=== PATIENT | female | born 1990 | race Caucasian/White ===

== ENCOUNTER 2020-06-13 11:00 | Emergency (ER) | payer MEDICAID, SELFPAY ==
[2020-06-13 11:08] VITALS: BP 151/95; PULSE 70; RESP 16; TEMP 36.8; O2SAT 100
--- NOTE | 2020-06-13 11:18 | ED.DENTAL ---
HPI - Dental/Oral General Chief complaint: Dental/Oral Stated complaint: tooth pain Time Seen by Provider: 06/13/20 11:15 Source: patient Mode of arrival: ambulatory Limitations: no limitations History of Present Illness HPI Narrative: Joan Joshua is a 29 yo female with no PMH who has dental pain in tooth #2 that started last night. Patient knows that tooth needs to be pulled but has not established a dentist here in the area; states moved here recently from [place]. She rates pain as 10 out of 10. Patient denies any nausea vomiting diarrhea or fever, has minimal facial swelling Related Data Allergies Allergy/AdvReac Type Severity Reaction Status Date / Time No Known Allergies Allergy Verified 06/13/20 11:15 Review of Systems Review of Systems: Narrative: CONSTITUTIONAL: Denies fever, chills, sweats. EYES: Denies visual changes, redness, discharge. ENT: Denies rhinorrhea, congestion, sore throat, otalgia. Has pain in tooth #2, needs to be pulled CARDIOVASCULAR: Denies chest pain, palpitations, edema. RESPIRATORY: Denies dyspnea, wheezing, cough GASTROINTESTINAL: Denies abdominal pain, nausea, vomiting, diarrhea. GENITOURINARY: Denies dysuria, hematuria, abnormal discharge SKIN: Denies rash or itching. NEUROLOGIC: Denies numbness, or focal weakness. PSYCHIATRIC: Denies anxiety or depression. PMFSH Past Medical History Medical History No active medical problems Family History Family History Other No active medical problems Social History Social History (Updated 06/13/20 @ 11:21 by Marina Barrios CNP) Smoking status: Never smoker Alcohol intake: current Comments At time of signature, I agree with nursing past medical, surgical, social and family history. There is no relevant family history pertinent to the presenting complaint. Patient's blood pressure elevated in the visit probably due to pain; needs to establish PCP Exam Narrative: Exam Narrative: GENERAL: This is a well-nourished, well-developed patient, in moderate distress. HEAD: normocephalic, atraumatic. EYES: Sclera clear/white. Vision is grossly intact. EARS: External ears normal Hearing grossly intact. NOSE: External nose normal without nasal discharge, nares without redness, no rhinorrhea. THROAT: Mucous membranes moist, tooth pain #2 with swelling of the gum and pain when closing mouth; mild right-sided facial swelling NECK: Neck supple, non-tender CARDIOVASCULAR: Regular rate and rhythm without murmurs, gallops, or rubs. RESPIRATORY: Clear to auscultation. Breath sounds equal bilaterally. No wheezes, rales, or rhonchi. GASTROINTESTINAL: Abdomen soft, SKIN: warm, intact with no suspicious lesions or rash, good texture and turgor. NEURO: awake, alert, and oriented to person, place and time. There were no obvious focal neurologic abnormalities. Steady gait EXTREMITIES: Normal range of motion. BACK: Nontender without deformity Course Course Emergency Course: Started on penicillin, discussed use ibuprofen and given Tylenol 3 Referral to see you dental follow-up with dentist in the area Vital Signs Vital signs: Vital Signs Temperature 98.3 F 06/13/20 11:08 Pulse Rate 70 06/13/20 11:08 Respiratory Rate 16 06/13/20 11:08 Blood Pressure 151/95 H 06/13/20 11:08 Pulse Oximetry 100 06/13/20 11:08 Temperature 98.3 F 06/13/20 11:08 Pulse Rate 70 06/13/20 11:08 Respiratory Rate 16 06/13/20 11:08 Blood Pressure 151/95 H 06/13/20 11:08 Pulse Oximetry 100 06/13/20 11:08 MDM - Dental/Oral Differential Diagnosis Differential diagnosis: Likely gingival abscess, dental caries, toothache, dental abscess and fracture of tooth Discharge Plan Discharge Clinical Impression: Dental abscess Patient Disposition: Home, Self-Care Condition: Stable Instructions: Antibiotic Form, Dental Abscess
== END 2020-06-13 11:36 | disposition home or self-care (01) ==
PROVIDERS: Emergency Provider Nurse Practitioner
DX: K04.7 Periapical abscess without sinus (principal)
CPT/HCPCS: 99213; G0463

== ENCOUNTER 2020-08-30 08:08 | Emergency (ER) | payer OTHER, SELFPAY ==
[2020-08-30 08:21] VITALS: BP 135/75; PULSE 99; RESP 16; TEMP 37.2; O2SAT 100
--- NOTE | 2020-08-30 08:25 | ED.DENTAL ---
HPI - Dental/Oral General Chief complaint: Dental/Oral Stated complaint: sore throat/infected tooth Time Seen by Provider: 08/30/20 08:26 Source: patient and RN notes reviewed Mode of arrival: ambulatory Limitations: no limitations History of Present Illness HPI Narrative: 29 year old female presents with concern for dental abscess and exposure to COVID. She reports a history of dental problems. She reports she has been having dental pain and sore throat since Sunday, but woke up this morning with swelling in her left lower jaw. She is able to swallow secretions. She denies fever, body aches, cough, chills, sweats. She reports her room mate was recently diagnosed with COVID. MD Complaint: tooth pain Location: Tooth # (17) Related Data Allergies Allergy/AdvReac Type Severity Reaction Status Date / Time No Known Allergies Allergy Verified 08/30/20 08:19 Review of Systems Review of Systems: Narrative: CONSTITUTIONAL: Denies malaise, chills, sweats, or fever. EYES: Denies visual changes ENT: Denies rhinorrhea, congestion, sinus pain, otalgia, Reports sore throat. Reports left lower dental pain, left lower jaw swelling CARDIOVASCULAR: Denies chest pain, palpitations, or edema. RESPIRATORY: Denies cough or dyspnea. GASTROINTESTINAL: Denies abdominal pain, nausea, vomiting SKIN: Denies rash or itching. MUSCULOSKELETAL: Denies myalgia. NEUROLOGIC: Denies headache. All systems reviewed & are unremarkable except as noted in HPI and below PMFSH Past Medical History Medical History (Updated 08/30/20 @ 08:57 by Jessenia Charles NP) No active medical problems Family History Family History Other No active medical problems Social History Social History (Updated 06/13/20 @ 11:21 by Marina Barrios CNP) Smoking status: Never smoker Alcohol intake: current Comments At time of signature, agree with nursing past medical, surgical, social and family history. There is no relevant family history pertinent to the presenting complaint Exam Narrative: Exam Narrative: GENERAL: Well-appearing, well-nourished, and in no acute distress. HEAD: Normocephalic, atraumatic. EYES: PERRLA, conjunctivae clear ENT: Nares clear. Mucous membranes moist. TM pearly carter with sharp light reflex bilaterally; no tragal tenderness. Oropharynx without edema, mild erythema, no lesions. No drooling, Left Tonsil enlarged and without exudate. NECK: Supple. No lymphadenopathy. CHEST: No respiratory distress. Clear to auscultation. No bony deformities, no asymmetry. Speaks in full sentences. HEART: Regular rate and rhythm. No murmur heard. SKIN: Warm, dry, no rash. NEURO: Alert and oriented x3. PSYCH: Normal mood and affect Course Course Emergency Course: Patient is aware of diagnosis, understands and agrees to treatment plan. Anticipatory guidance given. Patient agrees to follow-up as directed and is aware of reasons to seek care at the emergency department. Portions of this record may have been created with voice recognition software Vital Signs Vital signs: Vital Signs Temperature 99.0 F 08/30/20 08:21 Pulse Rate 99 08/30/20 08:21 Respiratory Rate 16 08/30/20 08:21 Blood Pressure 135/75 08/30/20 08:21 Pulse Oximetry 100 08/30/20 08:21 Temperature 99.0 F 08/30/20 08:21 Pulse Rate 99 08/30/20 08:21 Respiratory Rate 16 08/30/20 08:21 Blood Pressure 135/75 08/30/20 08:21 Pulse Oximetry 100 08/30/20 08:21 Reviewed. MDM - Dental/Oral MDM Narrative Medical decision making narrative: Patients pain and complaint coupled with physical findings are consistant with dentalgia. There are no focal signs of space occupying lesions that are compromising to the airway; no dysphagia, odynophagia, dysphonia, or dyspnea. No uvular deviation or soft palate edema. Patient is non-toxic appearing. The floor of the mouth is soft with no signs of Rad's Angina; no induration
== END 2020-08-30 08:53 | disposition home or self-care (01) ==
PROVIDERS: Emergency Provider Nurse Practitioner
DX: K04.7 Periapical abscess without sinus (principal); Z20.828 Contact with and (suspected) exposure to other viral communicable diseases
CPT/HCPCS: 87081; 87880; 99213; G0463

== ENCOUNTER 2020-12-11 07:50 | Emergency (ER) | payer OTHER, SELFPAY ==
[2020-12-11 07:59] VITALS: BP 140/90; PULSE 99; RESP 20; TEMP 36.2; O2SAT 99
--- NOTE | 2020-12-11 08:03 | ED.NAVMDI ---
HPI - Nausea/Vomiting/Diarrhea General Chief complaint: Nausea/Vomiting/Diarrhea Stated complaint: vomiting blood Time Seen by Provider: 12/11/20 07:53 History of Present Illness HPI Narrative: Nausea since waking up this morning. She was drinking heavily last night. She had one episode of forceful vomiting. She then subsequently vomited blood multiple times. She has never had this happen before. No significant pain. No active medical problems. Related Data Allergies Allergy/AdvReac Type Severity Reaction Status Date / Time No Known Allergies Allergy Verified 12/11/20 08:03 Review of Systems Review of Systems: All systems reviewed & are unremarkable except as noted in HPI and below Constitutional: Constitutional: Denies fever(s) and Denies weakness Eyes: Eyes: Denies no additional eye complaints ENT: Denies dizziness Cardiovascular: Cardiovascular: Denies chest pain Respiratory: Respiratory: Denies dyspnea Gastrointestinal: Gastrointestinal: Denies constipation, Denies diarrhea, Reports nausea and Reports vomiting Genitourinary: Genitourinary: Denies hematuria and Denies dysuria Neurologic: Denies dizziness and Denies weakness Hematologic/Lymphatic: Hematologic/Lymphatic: Denies easy bleeding PMFSH Past Medical History Medical History (Updated 12/12/20 @ 00:00 by [facility] Tasha) No active medical problems Family History Family History Other No active medical problems Social History Social History (Updated 06/13/20 @ 11:21 by Marina Barrios CNP) Smoking status: Never smoker Alcohol intake: current Gender identity (if verbalized by the patient): Female Exam Const: General: healthy appearing, no acute distress and alert Orientation/consciousness: patient oriented x3 HENMT: Head: normal to inspection General nose exam: Normal nares present Mouth: Yes moist mucous membranes Neck: Neck: normal visual inspection and no lymphadenopathy Chest: Chest palpation & inspection: no tenderness Resp: Effort & Inspection: normal respiratory effort Auscultation: clear to auscultation bilaterally, no rales, no rhonchi and no wheezes Cardio: Jugular venous distension: no JVD Rate: regular rate Rhythm: regular rhythm Heart sounds: no murmurs GI: Inspection: non-distended GI Palp: Yes Soft to palpation and No Tenderness to palpation present (GI) Skin: General skin exam: normal color Neuro: General: patient oriented x3 and moves all extremities Speech: normal speech Extrem: General: no edema Psych: Appearance: well kempt Affect: normal affect Course Vital Signs Vital signs: Vital Signs Temperature 36.2 C L 12/11/20 07:59 Pulse Rate 99 12/11/20 07:59 Respiratory Rate 20 12/11/20 07:59 Blood Pressure 140/90 12/11/20 07:59 Pulse Oximetry 99 12/11/20 07:59 Temperature 36.2 C L 12/11/20 07:59 Pulse Rate 80 12/11/20 11:45 Respiratory Rate 20 12/11/20 11:45 Blood Pressure 127/74 12/11/20 11:45 Pulse Oximetry 99 12/11/20 11:45 MDM - Nausea/Vomiting/Diarrhea MDM Narrative Medical decision making narrative: Story consistent with gabriel padilla tear. Discussed with Dr. Ferris and he agrees. He recommends protonix for 30 days and Phenergan prn. Labs stable at 3 hours. No more vomiting Differential Diagnosis Differential diagnosis: Likely other Medical Records Attestation: I reviewed the patient's medical records. Lab Data Attestation: I reviewed the patient's lab results. Result diagrams: 12/11/20 10:50 12/11/20 08:20 Labs: Lab Results 12/11/20 12/11/20 12/11/20 Range/Units 08:10 08:20 08:21 WBC 8.2 (4.5-10.0) K/mm3 RBC 4.43 (4.2-5.4) M/mm3 Hgb 13.9 (12.0-15.0) g/dL Hct 40.4 (37.0-47.0) % MCV 91.2 (80-100) fl MCH 31.4 (26-34) pg MCHC 34.4 (32-36) g/dl RDW 12.9 (11.5-14.5) % Plt Count 286 (150-375) k/mm3 MPV
[2020-12-11 08:17] LABS: Basophils Percent Auto 0.4 % (0.2-1.2); Eosinophils Absolute Auto 0.3 K/mm3 (0-0.3); Eosinophils Percent Auto 3.3 % (0-4.4); Hematocrit 40.4 % (37.0-47.0); Hemoglobin 13.9 g/dL (12.0-15.0); Immature Granulocyte Absolute 0.05 K/mm3 (0.00-0.031); Immature Granulocyte Percent A 0.6 % (0-0.5); Lymphocytes Absolute Auto 2.94 K/mm3 (0.9-3.2); Lymphocytes Percent Auto 36.1 % (18.3-44.2); Mean Corpuscular HGB Conc 34.4 g/dl (32-36); Mean Corpuscular Hemoglobin 31.4 pg (26-34); Mean Corpuscular Volume 91.2 fl (80-100); Mean Platelet Volume 10.5 fl (7.4-10.4); Monocytes Absolute Auto 0.8 K/mm3 (0.1-0.6); Monocytes Percent Auto 9.3 % (2.6-8.5); Neutrophils Absolute Auto 4.1 K/mm3 (1.3-6.7); Neutrophils Percent Auto 50.3 % (45.5-73.1); Platelet Count Result 286 k/mm3 (150-375); Red Blood Count 4.43 M/mm3 (4.2-5.4); Red Cell Distribution Width 12.9 % (11.5-14.5); White Blood Count 8.2 K/mm3 (4.5-10.0)
[2020-12-11] MEDS: PANTOPRAZOLE SODIUM IV 40 MG VIAL IV PUSH (08:17)
[2020-12-11 08:20] VITALS: BP 137/92; PULSE 92; RESP 20; O2SAT 100
[2020-12-11 08:37] LABS: INR 0.9; Prothrombin Time 12.3 Seconds (11.1-14.7)
[2020-12-11 08:38] LABS: Partial Thromboplastin Time 26.7 SECONDS (22.3-36.8)
[2020-12-11 08:40] LABS: Alanine Aminotransferase 14 U/L (4-35); Albumin Level 4.2 g/dL (3.5-5.1); Alkaline Phosphatase 60 U/L (38-126); Anion Gap 9 mmol/L (8-16); Aspartate Amino Transferase 32 U/L (14-36); Bilirubin,Total 0.1 mg/dL (0.2-1.3); Blood Urea Nitrogen 15 mg/dL (7-17); Calcium 8.7 mg/dL (8.4-10.2); Carbon Dioxide 24 mmol/L (22-30); Chloride 107 mmol/L (98-107); Estimated CRCL calculation 125 ml/min; Estimated Glomerular Filt Rate > 60; Glucose 108 mg/dL (65-105); Lipase 88 U/L (23-300); Potassium 3.8 mmol/L (3.4-5.0); Sodium 140 mmol/L (137-145)
[2020-12-11 08:57] LABS: Add Urine Microscopic? YES; Amorphous Sediment Urine Few; Appearance Urine Cloudy (Clear); Bilirubin Urine Negative (Negative); Blood Urine 2+ (Negative); Color Urine Yellow (Yellow); Glucose Urine UA Negative (Negative); Ketones Urine Negative (Negative); Leukocyte Esterase Ur Negative LEU/UL (Negative); Nitrate Urine Negative (Negative); Protein Urine 1+ mg/dL (Negative); RBC Urine 51-75 /hpf (0-2); Specific Grav Ur 1.015 (1.001-1.035); Squamous Epithelial Cell Urine Occasional /hpf (Few); Urobilinogen Urine Negative mg/dL (<2.0); WBC Urine 0-3 /hpf
[2020-12-11] MEDS: ONDANSETRON INJ 4 MG/2 ML VIAL IV PUSH (09:12)
[2020-12-11 09:25] VITALS: BP 140/95; PULSE 72; RESP 20; O2SAT 100
[2020-12-11 10:14] VITALS: BP 127/74; PULSE 70; RESP 20; O2SAT 100
--- NOTE | 2020-12-11 10:52 | WPDGIPROGNO ---
Progress Note: A&P Additional Plan Protonix 40 mg po daily x 30 days then stop Clears only today Antiemetics prn Rechack H+H and if stable ok to d/c Care with EtoH Avoid asa/nsaids x 2 weeks F/U gi prn Case discussed with Dr. De La Fuente #[id number] Josy [phone] Subjective Date/time seen: 12/11/20 10:52 Objective Data Vital Signs Vital Signs: Vital Signs - 24 hr 12/11/20 07:59 12/11/20 08:20 12/11/20 09:25 Temperature 36.2 C L Pulse Rate 99 92 72 Respiratory Rate 20 20 20 Blood Pressure 140/90 137/92 H 140/95 H Pulse Oximetry 99 100 100 12/11/20 10:14 Temperature Pulse Rate 70 Respiratory Rate 20 Blood Pressure 127/74 Pulse Oximetry 100 Labs Labs: Laboratory Results - last 24 hr 12/11/20 12/11/20 12/11/20 08:10 08:20 08:21 WBC 8.2 RBC 4.43 Hgb 13.9 Hct 40.4 MCV 91.2 MCH 31.4 MCHC 34.4 RDW 12.9 Plt Count 286 MPV 10.5 H Immature Gran % (Auto) 0.6 H Neut % (Auto) 50.3 Lymph % (Auto) 36.1 [place] % (Auto) 9.3 H Eos % (Auto) 3.3 Baso % (Auto) 0.4 Lymph # (Auto) 2.94 [place] # (Auto) 0.8 H Eos # (Auto) 0.3 Baso # (Auto) 0.0 Abs Immat Gran (auto) 0.05 H Absolute Neuts (auto) 4.1 Absolute Nucleated RBC 0.0 Nucleated RBC % 0.0 PT INR APTT Sodium 140 Potassium 3.8 Chloride 107 Carbon Dioxide 24 Anion Gap 9 BUN 15 Creatinine 0.60 L Estim Creat Clear Calc 125 Estimated GFR > 60 Glucose 108 H Calcium 8.7 Total Bilirubin 0.1 L AST 32 ALT 14 Alkaline Phosphatase 60 Total Protein 7.0 Albumin 4.2 Lipase 88 Urine Color Urine Appearance Urine pH Ur Specific Vandiver Urine Protein Urine Glucose (UA) Urine Ketones Ur Blood (Man) Urine Nitrate Urine Bilirubin Urine Urobilinogen Leukocyte Esterase Rfl Urine RBC Urine WBC Ur Squamous Epith Cells Amorphous Sediment Blood Type AB Positive Antibody Screen Negative 12/11/20 12/11/20 08:21 08:45 WBC RBC Hgb Hct MCV MCH MCHC RDW Plt Count MPV Immature Gran % (Auto) Neut % (Auto) Lymph % (Auto) [place] % (Auto) Eos % (Auto) Baso % (Auto) Lymph # (Auto) [place] # (Auto) Eos # (Auto) Baso # (Auto) Abs Immat Gran (auto) Absolute Neuts (auto) Absolute Nucleated RBC Nucleated RBC % PT 12.3 INR 0.9 APTT 26.7 Sodium Potassium Chloride Carbon Dioxide Anion Gap BUN Creatinine Estim Creat Clear Calc Estimated GFR Glucose Calcium Total Bilirubin AST ALT Alkaline Phosphatase Total Protein Albumin Lipase Urine Color Yellow Urine Appearance Cloudy H Urine pH 8.0 Ur Specific [place]iver 1.015 Urine Protein 1+ H Urine Glucose (UA) Negative Urine Ketones Negative Ur Blood (Man) 2+ H Urine Nitrate Negative Urine Bilirubin Negative Urine Urobilinogen Negative Leukocyte Esterase Rfl Negative Urine RBC 51-75 H Urine WBC 0-3 Ur Squamous Epith Cells Occasional Amorphous Sediment Few H Blood Type Antibody Screen
[2020-12-11 10:55] LABS: Hemoglobin 14.6 g/dL (12.0-15.0)
[2020-12-11 11:18] VITALS: BP 127/74; PULSE 80; RESP 20; O2SAT 100
--- NOTE | 2020-12-11 11:40 | CONS_ITS ---
DATE OF CONSULTATION: 12/11/2020 HISTORY OF PRESENT ILLNESS: A 30-year-old female without medical history who I am now asked to provide GI evaluation at the request of the ER service for hematemesis. The patient has no primary care provider. The patient states that she was out at a bar drinking last night, mostly fireball. This morning she had nausea and vomiting and after a few episodes began having hematemesis. This seems to have subsided. She did take ibuprofen this morning, but no aspirin. Now, she has minimal nausea and is without vomiting. She otherwise denies problems with abdominal pain, nausea, vomiting, heartburn, trouble swallowing, loss of appetite or weight, diarrhea, constipation, hematochezia, melena, fever, jaundice, scleral icterus, dark urine, light stools, itching, hot or cold intolerance. No chest pain, shortness of breath at rest, hematuria, dysuria, new cough or visual changes, easy bruising, tingling of the skin, bone pain, or tremors. No endocarditis risk factors. ALLERGIES: NO KNOWN DRUG ALLERGIES. OUTPATIENT MEDICINES: None except as above. SOCIAL HISTORY: Positive drinker. Nonsmoker. FAMILY HISTORY: Negative for GI malignancy. PHYSICAL EXAM: GENERAL: Well-developed, well-nourished female, lying in bed, no apparent distress. She has no lower extremity edema, jaundice, spider angioma, or palmar erythema. HEENT : Skull is normocephalic, atraumatic. Pupils nonicteric. Oropharynx is clear. NECK: Supple without thyromegaly. LUNGS: Clear to auscultation. HEART: Rate and rhythm regular. S1, S2 normal. ABDOMEN: Normoactive bowel sounds. Soft, nontender, nonrigid, nondistended without hepatosplenomegaly or masses. RECTAL: Deferred. NEURO: Conscious and oriented x3. LABORATORY DATA: Hemoglobin 14, hematocrit 40, white count of 8, MCV 91. INR 0.9. LFTs are normal. ASSESSMENT AND PLAN: Hematemesis after nausea and vomiting: - Likely Elissa-Herring tear. Less likely ulceration, arteriovenous malformation malignancy or other process - Nausea and vomiting appear to be subsiding; hematemesis has resolved - Okay for clear liquids today and recheck CBC later - If hematocrit is stable, would be okay sending home - If she continues to bleed or has significant drop in hematocrit, consider upper endoscopy - Would use Protonix 40 mg daily for 1 month, then stop - She can follow up with her primary care provider or GI as needed - Antiemetic prn - Avoid aspirin and NSAIDS - Case discussed with ER attending Thank you for allowing me to share in the care of this very nice patient. Please call if I can be of further assistance. MOY QUACH M.D. GLUE BONE CRUSHER GLUE BONE CRUSHER D I MT: Alice GONZALEZ
[2020-12-11 11:45] VITALS: BP 127/74; PULSE 80; RESP 20; O2SAT 99
== END 2020-12-11 11:47 | disposition home or self-care (01) ==
PROVIDERS: Emergency Provider Emergency Medicine
DX: K22.6 Gastro-esophageal laceration-hemorrhage syndrome (principal)
CPT/HCPCS: 36415; 80053; 81001; 81025; 83690; 85014; 85018; 85025; 85610; 85730; 86850; 86900; 86901; 96374; 96375; 99284; C9113; J2405

== ENCOUNTER 2021-01-27 13:55 | Emergency (ER) | payer OTHER, SELFPAY ==
[2021-01-27 14:36] VITALS: BP 155/76; PULSE 92; RESP 16; TEMP 36.7; O2SAT 98
--- NOTE | 2021-01-27 14:55 | ED.URI ---
HPI - URI/Sore Throat General Chief Complaint: Upper Respiratory Infection Stated Complaint: cough/sore throat /runny nose/headache Time Seen by Provider: 01/27/21 14:45 Source: patient Mode of arrival: ambulatory Limitations: no limitations History of Present Illness HPI Narrative: Joan Joshua is a 30-year-old female with no PMH comes to [facility] with 4 days of upper story symptoms. She has taken Mucinex and cough medicine and decongestants and continues to have difficulty with cough especially when trying to lay down and general congestion. States she does not feel well Related Data Home Medications Medication Instructions Recorded Confirmed norelgestromin-ethin.estradiol 1 patch TOPICAL WEEKLY 01/27/21 01/27/21 [Xulane] Allergies Allergy/AdvReac Type Severity Reaction Status Date / Time No Known Allergies Allergy Verified 01/27/21 14:23 Review of Systems Review of Systems: Narrative: CONSTITUTIONAL: Denies fever, chills, sweats. EYES: Denies visual changes, redness, discharge. ENT: Denies rhinorrhea, congestion, sore throat, otalgia. CARDIOVASCULAR: Denies chest pain, palpitations, edema. RESPIRATORY: Denies dyspnea, wheezing, cough. has apparent congestion GASTROINTESTINAL: Denies abdominal pain, nausea, vomiting, diarrhea. GENITOURINARY: Denies dysuria, hematuria, abnormal discharge SKIN: Denies rash or itching. NEUROLOGIC: Denies numbness, or focal weakness. PSYCHIATRIC: Denies anxiety or depression. PMFSH Past Medical History Medical History (Updated 01/27/21 @ 15:04 by Marina Barrios CNP) No active medical problems Family History Family History Other No active medical problems Social History Social History Smoking status: Never smoker Alcohol intake: current Gender identity (if verbalized by the patient): Female Exam Narrative: Exam Narrative: GENERAL: This is a well-nourished, well-developed patient, in mild distress. HEAD: normocephalic, atraumatic. EYES: Sclera clear/white. Vision is grossly intact. EARS: External ears normal, auditory canals clear and without drainage, TMs normal without perforation. Hearing grossly intact. NOSE: External nose normal without nasal discharge, nares without redness, has rhinorrhea.General sinus congestion THROAT: Mucous membranes moist, posterior pharynx erythema NECK: Neck supple, non-tender CARDIOVASCULAR: Regular rate and rhythm without murmurs, gallops, or rubs. RESPIRATORY: Clear to auscultation. Breath sounds equal bilaterally. No wheezes, rales, or rhonchi. GASTROINTESTINAL: Abdomen soft, non-tender, SKIN: warm, intact with no suspicious lesions or rash, good texture and turgor. NEURO: awake, alert, and oriented to person, place and time. There were no obvious focal neurologic abnormalities. Steady gait EXTREMITIES: Normal range of motion. BACK: Nontender without deformity Course Course Emergency Course: Patient Covid test at that visit was negative and fever on Sunday or Sunday and is continued to have cold-like symptoms Her flu, strep, Covid test were Started on albuterol steroids and Mucinex Vital Signs Vital signs: Vital Signs Temperature 98.1 F 01/27/21 14:36 Pulse Rate 92 01/27/21 14:36 Respiratory Rate 16 01/27/21 14:36 Blood Pressure 155/76 H 01/27/21 14:36 Pulse Oximetry 98 01/27/21 14:36 Temperature 98.1 F 01/27/21 14:36 Pulse Rate 92 01/27/21 14:36 Respiratory Rate 16 01/27/21 14:36 Blood Pressure 155/76 H 01/27/21 14:36 Pulse Oximetry 98 01/27/21 14:36 MDM - URI/Sore Throat Differential Diagnosis Differential diagnosis: Likely upper respiratory infection, viral infection and other Lab Data Labs: Lab Results 01/27/21 Range/Units 14:37 POC SARS CoV-2 Ag Negative (Negative) Influenza A Screen Negative
== END 2021-01-27 15:18 | disposition home or self-care (01) ==
PROVIDERS: Emergency Provider Nurse Practitioner
DX: J06.9 Acute upper respiratory infection, unspecified (principal); J01.10 Acute frontal sinusitis, unspecified; Z20.822 Contact with and (suspected) exposure to COVID-19
CPT/HCPCS: 87081; 87426; 87804; 87880; 99213; C9803; G0463

== ENCOUNTER 2021-04-26 17:40 | Emergency (ER) | payer OTHER, SELFPAY ==
[2021-04-26 17:48] VITALS: BP 160/110; PULSE 72; RESP 16; TEMP 36.5; O2SAT 99
--- NOTE | 2021-04-26 17:50 | PC.NURSE ---
in br to obtain ua spec.
--- NOTE | 2021-04-26 18:05 | ED.FEMALEGU ---
HPI - Female Genitourinary General Chief complaint: Urogenital-Female Stated complaint: UTI Time Seen by Provider: 04/26/21 17:54 Source: patient and RN notes reviewed Mode of arrival: ambulatory Limitations: no limitations History of Present Illness HPI Narrative: Patient presents today complaining of urinary frequency, lower abdominal pressure since this morning. Denies dysuria, hematuria, back pain. She has been taking Azo cranberry without relief. Recently on penicillin for dental issue. Related Data Home Medications Medication Instructions Recorded Confirmed norelgestromin-ethin.estradiol 1 patch TOPICAL WEEKLY 01/27/21 01/27/21 [Xulane] Allergies Allergy/AdvReac Type Severity Reaction Status Date / Time No Known Allergies Allergy Verified 01/27/21 14:23 Review of Systems Review of Systems: Narrative: CONSTITUTIONAL: Denies body aches, fever, chills, or sweats. EYES: Denies visual changes, redness, or discharge. ENT: Denies rhinorrhea, congestion, sore throat, or otalgia. CARDIOVASCULAR: Denies chest pain, palpitations, or edema. RESPIRATORY: Denies cough or dyspnea. GASTROINTESTINAL: Denies abdominal pain, nausea, vomiting, or diarrhea. GENITOURINARY: Denies dysuria or hematuria.+ Frequency, lower abdominal pressure SKIN: Denies rash, itching, or wounds. MUSCULOSKELETAL: Denies back pain, joint pain, or myalgia. NEUROLOGIC: Denies headache, numbness, tingling, or weakness. PSYCH: Denies depression or anxiety. PMFSH Past Medical History Medical History (Updated 04/26/21 @ 18:08 by Asha Baires, [employer], ) No active medical problems Family History Family History Other No active medical problems Social History Social History Smoking status: Never smoker Alcohol intake: current Gender identity (if verbalized by the patient): Female Comments At time of signature, I have reviewed and agree with nursing past medical, surgical, social and family history unless otherwise noted. Please see nursing chart for further information. There is no relevant family history pertinent to the presenting complaint Exam Narrative: Exam Narrative: GENERAL: Well-appearing, well-nourished, and in no acute distress. HEAD: Normocephalic, atraumatic. EYES: EOMI. No redness or drainage. Conjunctivae normal. ENT: Mucous membranes pink and moist. Nares clear. No rhinorrhea. TMs normal bilaterally. Throat normal. Uvula midline. NECK: Normal AROM. Supple. No lymphadenopathy. CHEST: No respiratory distress. Clear to auscultation. HEART: Regular rate and rhythm. No murmur appreciated. Normal peripheral pulses. ABDOMEN: Soft, nondistended, normal active bowel sounds. + Mild suprapubic tenderness MUSCULOSKELETAL: No bony tenderness. EXTREMITIES: Normal range of motion. No edema. SKIN: Warm, dry, no rash. Capillary refill normal. Normal skin turgor. NEURO: No focal deficits. Alert and oriented x3. Gait steady. PSYCH: Normal affect. No signs of depression or anxiety. Course Vital Signs Vital signs: Vital Signs Temperature 97.7 F 04/26/21 17:48 Pulse Rate 72 04/26/21 17:48 Respiratory Rate 16 04/26/21 17:48 Blood Pressure 160/110 H 04/26/21 17:48 Pulse Oximetry 99 04/26/21 17:48 Temperature 97.7 F 04/26/21 17:48 Pulse Rate 72 04/26/21 17:48 Respiratory Rate 16 04/26/21 17:48 Blood Pressure 160/110 H 04/26/21 17:48 Pulse Oximetry 99 04/26/21 17:48 Reviewed. Pt has been instructed to follow up with her PCP regarding her elevated blood pressure today. Patient just moved into town from [place] and will be given a list of doctors in the area to initiate care. MDM - Female Genitourinary Differential Diagnosis Differential diagnosis: Likely urinary tract infection, vaginitis, cystitis and other (Interstitial cystitis, pyelonephritis) Lab Data Attestati
== END 2021-04-26 18:16 | disposition home or self-care (01) ==
PROVIDERS: Emergency Provider Nurse Practitioner
DX: N30.01 Acute cystitis with hematuria (principal)
CPT/HCPCS: 81003; 87077; 87086; 87088; 87186; 99213; G0463

== ENCOUNTER 2021-04-27 13:05 | Emergency (ER) | payer OTHER, SELFPAY ==
[2021-04-27] VITALS (17 sets, daily range): BP systolic 138–148; BP diastolic 86–104; PULSE 78–96; RESP 10–23; TEMP 36.6–36.8; O2SAT 99–100
--- NOTE | ~2021-04-27 | XR_ITS ---
EXAMINATION: XR chest 2V EXAM DATE: 04/27/2021 13:48 INDICATION: Hypertension, chest tightness and dizziness. Recent UTI. TECHNIQUE: Frontal and lateral projections of the chest obtained and reviewed. There is no prior phill dy for comparison. FINDINGS: The lungs are clear. There are no pleural effusions. The cardiomediastinal silhouette is within normal limits. There is no pneumothorax suspected. The bones and soft tissues are unremarkab le. IMPRESSION: Normal chest x-ray exam. Reviewed, dictated and finalized at location A. IMPRESSION: Normal chest x-ray exam.
--- NOTE | 2021-04-27 13:15 | ECG_ITS ---
Measurements Intervals [place] Rate: 88 P: 13 NM: 146 QRS: 45 QRSD: 88 T: 36 QT: 341 QTc: 414 Interpretive Statements SINUS RHYTHM NORMAL ECG Electronically Signed On 04-27-2021 14:41:55 CDT by Fabian Ford D.O.
[2021-04-27 14:00] LABS: Basophils Percent Auto 0.3 % (0.2-1.2); Eosinophils Absolute Auto 0.1 K/mm3 (0-0.3); Eosinophils Percent Auto 1.2 % (0-4.4); Hematocrit 40.8 % (37.0-47.0); Hemoglobin 13.9 g/dL (12.0-15.0); Immature Granulocyte Absolute 0.03 K/mm3 (0.00-0.031); Immature Granulocyte Percent A 0.3 % (0-0.5); Lymphocytes Absolute Auto 1.85 K/mm3 (0.9-3.2); Lymphocytes Percent Auto 20.7 % (18.3-44.2); Mean Corpuscular HGB Conc 34.1 g/dl (32-36); Mean Corpuscular Hemoglobin 30.8 pg (26-34); Mean Corpuscular Volume 90.3 fl (80-100); Mean Platelet Volume 11.1 fl (7.4-10.4); Monocytes Absolute Auto 0.7 K/mm3 (0.1-0.6); Monocytes Percent Auto 8.3 % (2.6-8.5); Neutrophils Absolute Auto 6.2 K/mm3 (1.3-6.7); Neutrophils Percent Auto 69.2 % (45.5-73.1); Platelet Count Result 238 k/mm3 (150-375); Red Blood Count 4.52 M/mm3 (4.2-5.4); Red Cell Distribution Width 12.2 % (11.5-14.5); White Blood Count 8.9 K/mm3 (4.5-10.0)
[2021-04-27 14:14] LABS: Anion Gap 8 mmol/L (8-16); Blood Urea Nitrogen 7 mg/dL (7-17); Calcium 9.3 mg/dL (8.4-10.2); Carbon Dioxide 27 mmol/L (22-30); Chloride 104 mmol/L (98-107); Estimated CRCL calculation 95 ml/min; Estimated Glomerular Filt Rate > 60; Glucose 79 mg/dL (65-105); Potassium 4.4 mmol/L (3.4-5.0); Sodium 139 mmol/L (137-145)
[2021-04-27 14:17] LABS: INR 0.9
[2021-04-27 14:20] LABS: Partial Thromboplastin Time 28.4 SECONDS (22.3-36.8)
[2021-04-27 14:26] LABS: Troponin I < 0.012 ng/mL (0.000-0.034)
[2021-04-27] MEDS: SODIUM CHLORIDE 0.9% IV 1,000 ML 999 ML IV CONT (16:15)
[2021-04-27] MEDS: FAMOTIDINE 20 MG/2 ML VIAL IV PUSH (16:15)
--- NOTE | 2021-04-27 16:25 | ED.GENADULT ---
HPI - General Adult General Chief complaint: Chest Pain Stated complaint: ELEVATED BP Time Seen by Provider: 04/27/21 15:10 Source: patient and RN notes reviewed Mode of arrival: ambulatory Limitations: no limitations History of Present Illness HPI narrative: Patient is a 30-year-old female who presents to emergency department for evaluation of feeling dizzy lightheaded that began today is also had urinary frequency and urgency was seen yesterday when her symptoms began was diagnosed with a urinary tract infection but never picked up the medication she was prescribed this morning nor has she started her medication and she states she continues to feel lightheaded dizzy and fatigue patient denies any URI symptoms or other complaints on arrival is in the room in no distress has not taken anything for her symptoms denies URI symptoms has not been vaccinated for Covid Related Data Home Medications Medication Instructions Recorded Confirmed norelgestromin-ethin.estradiol 1 patch TOPICAL WEEKLY 01/27/21 01/27/21 [Xulane] Allergies Allergy/AdvReac Type Severity Reaction Status Date / Time No Known Allergies Allergy Verified 04/27/21 15:15 Review of Systems Review of Systems: All systems reviewed & are unremarkable except as noted in HPI and below PMFSH Past Medical History Medical History (Updated 04/27/21 @ 16:49 by Jayant Frias PA-C) No active medical problems Family History Family History Other No active medical problems Social History Social History Smoking status: Never smoker Alcohol intake: current Gender identity (if verbalized by the patient): Female Exam Narrative: Exam Narrative: GENERAL: Well-appearing, well-nourished, and in no acute distress. HEAD: Normocephalic, atraumatic. EYES: PERRLA and EOMI. ENT: Nares clear, no rhinorrhea or epistaxis. Mucous membranes moist. CHEST: Clear to auscultation. No respiratory distress. No wheezes rales or rhonchi HEART: Regular rate and rhythm. No murmur heard. Normal peripheral pulses. ABDOMEN: Soft, nontender, nondistended EXTREMITIES: Normal range of motion. No edema. SKIN: Warm, dry, no rash. NEURO: No focal deficits. Alert and oriented x3. PSYCH: Normal mood and affect. Course Course Emergency Course: Patient in the room no distress aware of case findings treatment plan diagnosis will be discharged home with outpatient follow-up given fluids and IV antibiotics prior to discharge diagnosis urinary tract infection Vital Signs Vital signs: Vital Signs Temperature 98 F 04/27/21 13:17 Pulse Rate 92 04/27/21 13:17 Respiratory Rate 16 04/27/21 13:17 Blood Pressure 143/86 H 04/27/21 13:17 Pulse Oximetry 100 04/27/21 13:17 Temperature 98.3 F 04/27/21 13:31 Pulse Rate 86 04/27/21 16:00 Respiratory Rate 18 04/27/21 15:12 Blood Pressure 148/99 H 04/27/21 15:12 Pulse Oximetry 100 04/27/21 15:12 Medical Decision Making MDM Narrative Medical decision making narrative: Patient symptoms most consistent with urinary tract infection will be treated accordingly no other high risk changes in the evaluation afebrile nontoxic-appearing no distress ABCs and vital signs intact and stable Vital Signs Vital Signs: Vital Signs Temperature 98 F 04/27/21 13:17 Pulse Rate 92 04/27/21 13:17 Respiratory Rate 16 04/27/21 13:17 Blood Pressure 143/86 H 04/27/21 13:17 Pulse Oximetry 100 04/27/21 13:17 Temperature 98.3 F 04/27/21 13:31 Pulse Rate 86 04/27/21 16:00 Respiratory Rate 18 04/27/21 15:12 Blood Pressure 148/99 H 04/27/21 15:12 Pulse Oximetry 100 04/27/21 15:12 Lab Data Result diagrams: 04/27/21 13:42 04/27/21 13:42 Labs: Lab Results 04/27/21 04/27/21 04/27/21 Range/Units 13:42 13:42 13:42 WBC 8.9 (4.5-10.0) K/mm3 RBC 4.52
[2021-04-27 16:38] LABS: Add Urine Microscopic? YES; Appearance Urine Cloudy (Clear); Bacteria Urine Trace /hpf; Bilirubin Urine Negative (Negative); Blood Urine 1+ (Negative); Color Urine Yellow (Yellow); Glucose Urine UA Negative (Negative); Ketones Urine Negative (Negative); Leukocyte Esterase Ur 2+ LEU/UL (Negative); Mucus Urine Rare /lpf; Nitrate Urine Positive (Negative); Protein Urine 1+ mg/dL (Negative); RBC Urine 21-50 /hpf (0-2); Specific Grav Ur 1.011 (1.001-1.035); Squamous Epithelial Cell Urine Few /hpf (Few); WBC Urine 31-50 /hpf
[2021-04-27 17:12] LABS: Troponin I < 0.012 ng/mL (0.000-0.034)
== END 2021-04-27 17:35 | disposition home or self-care (01) ==
PROVIDERS: Emergency Medicine Emergency Medical Services; Emergency Provider Emergency Medicine
DX: N39.0 Urinary tract infection, site not specified (principal)
CPT/HCPCS: 36415; 71046; 80048; 81001; 81025; 84484; 85025; 85610; 85730; 93005; 96361; 96365; 96375; 99284; J0131; J0696; J7030

== ENCOUNTER 2021-06-13 12:54 | Emergency (ER) | payer OTHER, SELFPAY ==
[2021-06-13 13:04] VITALS: BP 142/99; PULSE 93; RESP 16; TEMP 36.8; O2SAT 100
--- NOTE | 2021-06-13 13:07 | ED.DENTAL ---
HPI - Dental/Oral General Chief complaint: Dental/Oral Stated complaint: Tooth Pain Time Seen by Provider: 06/13/21 13:07 Source: patient and RN notes reviewed Mode of arrival: ambulatory Limitations: no limitations History of Present Illness HPI Narrative: 30yo female presnts to the [facility] with dental pain. Has a history of broken tooth. States that she was supposed to have dental work done a year ago but Covid got in the way. States that she does have an appointment at [facility] but states it is red and swollen and they will not do anything if she has an infection. Requesting antibiotics. Related Data Allergies Allergy/AdvReac Type Severity Reaction Status Date / Time No Known Allergies Allergy Verified 06/13/21 13:00 Review of Systems Review of Systems: All systems reviewed & are unremarkable except as noted in HPI and below Constitutional: Constitutional: Reports no additional constitutional complaints, Denies chills and Denies fever(s) Eyes: Eyes: Reports no additional eye complaints ENT: Reports as per HPI Comments: Left lower posterior dental pain and swelling Cardiovascular: Cardiovascular: Reports no additional cardiovascular complaints and Denies chest pain Respiratory: Respiratory: Reports no additional respiratory complaints, Denies cough and Denies dyspnea Gastrointestinal: Gastrointestinal: Reports no additional gastrointestinal complaints Musculoskeletal: Musculoskeletal: Reports no additional musculoskeletal complaints Integumentary/Breasts: Skin/Breast: Reports system reviewed and no additional complaints, except as docu Neurologic: Reports system reviewed and no additional complaints, except as documented Psychiatric: Psychiatric: Reports no additional psychiatric complaints Allergic/Immunologic: Allergic/Immunologic: Reports no additional allergic/immunologic complaints [facility] Past Medical History Medical History No active medical problems Surgical History Surgical History (Updated 06/13/21 @ 19:41 by Jessenia Correa) No significant past surgical history Family History Family History Other No active medical problems Social History Social History Smoking status: Never smoker Alcohol intake: current Gender identity (if verbalized by the patient): Female Comments At the time of my signature, I reviewed and agree with the nursing past medical, surgical, social, and family history. There is no relevant family history pertinent to the patient complaint. Exam Const: General: healthy appearing, no acute distress and alert Nutritional Appearance: well nourished Orientation/consciousness: patient oriented x3 Limitations: no limitations HENMT: Head: normal to inspection Teeth and gingiva: poor dentition Teeth image: 1. Fractured tooth with surrounding tissue swelling, redness Throat: posterior oropharynx normal Eyes: Pupils: Equal, round and reactive pupils present Neck: Neck: normal visual inspection, no lymphadenopathy and no meningeal signs Chest: Chest palpation & inspection: normal inspection of the chest Resp: Effort & Inspection: normal respiratory effort Auscultation: clear to auscultation bilaterally Cardio: Rate: regular rate Rhythm: regular rhythm Back/Spine/Pelvis: Back: no CVA tenderness Skin: General skin exam: normal color Rashes: no rashes Wounds: no wounds Neuro: General: patient oriented x3 Extrem: General: normal to inspection Psych: Appearance: grossly normal and well kempt Mental Status: mental status grossly normal Affect: normal affect Attitude: cooperative Thought content: Yes Normal thought content present Course Course Emergency Course: Discharge instructions reviewed with patient, as well as provided in writing per nursing staff. The instructions also include
== END 2021-06-13 13:46 | disposition home or self-care (01) ==
PROVIDERS: Emergency Provider Nurse Practitioner
DX: K04.7 Periapical abscess without sinus (principal)
CPT/HCPCS: 99213; G0463

== ENCOUNTER 2022-08-14 13:55 | Emergency (ER) | payer OTHER, SELFPAY ==
--- NOTE | 2022-08-14 13:56 | ED.URI ---
HPI - URI/Sore Throat General Chief Complaint: Upper Respiratory Infection Stated Complaint: Cough,Lt Ear Irritation Time Seen by Provider: 08/14/22 13:56 Source: patient Mode of arrival: ambulatory Limitations: no limitations History of Present Illness HPI Narrative: Ms. Joshua is a 31-year-old female patient presenting to clinic today with complaints of cough, runny nose, and left ear pain x1 week. She reports she is bringing up little bit of phlegm however it is clear. She does report more of left ear pain. Denies any fever or chills. MD elicited complaint: sore throat and nasal congestion Related Data Allergies Allergy/AdvReac Type Severity Reaction Status Date / Time No Known Allergies Allergy Verified 08/14/22 13:58 Review of Systems Review of Systems: Pertinent positives per HPI. Patient denies any fever, chills, rash, headache, visual changes, dizziness, shortness of breath, chest pain, palpitations, nausea, vomiting, diarrhea, constipation, abdominal pain, or any urinary issues. PMFSH Past Medical History Medical History No active medical problems Surgical History Surgical History No significant past surgical history Family History Family History Other No active medical problems Social History Social History Smoking status: Never smoker Alcohol intake: current Gender identity (if verbalized by the patient): Female Comments At the time of my signature, I reviewed and agree with the nursing past medical, surgical, social, and family history. There is no relevant family history pertinent to the patient complaint. Exam Narrative: General: Well-developed, well nourished, in no apparent distress Head: Normocephalic, atraumatic Eyes: Pupils equally round and reactive to light bilaterally, EOM intact, sclera and conjunctive clear, no discharge, lids normal Ears: Right TMs intact and clear, left TM intact, bulging, red, ear canals clear, no drainage, grossly hearing normal. Nose: Nares patent, clear nasal discharge, no inflammation, no sinus tenderness. Mouth: Oral pharynx without lesions or masses, good dentition, MMM. Neck: Supple, trachea midline, no enlargement of anterior or posterior cervical nodes, no thyroid masses or goiter palpable. Cardio: Regular rate and rhythm, s1 and s2 normal, no murmur appreciated. Resp: Clear to auscultation bilaterally, no rhonchi, rales, wheezing or rubs Course Course Emergency Course: Portions of this record may have been created with voice recognition software. Level of Care: Express Care Visit Vital Signs Vital signs: Vital signs reviewed MDM - URI/Sore Throat MDM Narrative Medical decision making narrative: At the time of visit patient is resting comfortably on the exam table. I suspect patient has an upper respiratory infection with left otitis media. Prescription for amoxicillin was sent to the pharmacy and supportive measures were discussed with the patient and she voiced understanding discharge instructions and agrees to treatment plan. Also discussed the patient's blood pressure in the clinic today and she plans to follow-up with her PCP. Differential Diagnosis Differential diagnosis: Likely upper respiratory infection, otitis media, sinusitis, viral infection, bronchitis, influenza, pharyngitis and other (Covid) Discharge Plan Discharge Clinical Impression: Acute upper respiratory infection, Acute left otitis media Patient Disposition: Home, Self-Care Condition: Stable Instructions: Antibiotic Form, Ear Infection (ED), Upper Respiratory Infection (ED) Additional Instructions: Take prescription medications only as prescribed-amoxicillin Increase fluids and stay well hydrated
[2022-08-14 14:10] VITALS: BP 143/100; PULSE 95; RESP 18; TEMP 36.4; O2SAT 99
== END 2022-08-14 14:20 | disposition home or self-care (01) ==
PROVIDERS: Emergency Provider Nurse Practitioner Family
DX: J06.9 Acute upper respiratory infection, unspecified (principal); H66.92 Otitis media, unspecified, left ear
CPT/HCPCS: 99213; G0463

== ENCOUNTER 2022-11-05 09:30 | Emergency (ER) | payer OTHER, SELFPAY ==
[2022-11-05 09:40] VITALS: BP 149/82; PULSE 86; RESP 18; TEMP 36.8; O2SAT 100
[2022-11-05 09:41] VITALS: BP 149/82; PULSE 86; RESP 18; TEMP 36.8; O2SAT 100
--- NOTE | 2022-11-05 10:07 | ED.URI ---
HPI - URI/Sore Throat General Chief Complaint: Upper Respiratory Infection Stated Complaint: Sore Throat Time Seen by Provider: 11/05/22 09:33 Source: patient Mode of arrival: ambulatory Limitations: no limitations History of Present Illness HPI Narrative: 32-year-old female presents to [facility] with complaints of sore throat and chills since yesterday. Patient has been taking [id number] ibuprofen with minimal relief. Patient denies cough, congestion, runny nose, nausea vomiting or diarrhea. Patient denies sick contacts. Patient denies recent travel. MD elicited complaint: sore throat Onset (ago): day(s) (1) Able to tolerate fluids by mouth: Yes Exacerbating factors: nothing Associated symptoms: denies other symptoms Treatments prior to arrival: ibuprofen Related Data Home Medications Medication Instructions Recorded Confirmed norelgestromin 150 mcg-e.estradiol 1 patch transdermal WEEKLY 11/05/22 11/05/22 35 mcg/24 hr weekly transderm patch (Zafemy) Allergies Allergy/AdvReac Type Severity Reaction Status Date / Time No Known Allergies Allergy Verified 11/05/22 09:40 Review of Systems Constitutional: Constitutional: Reports chills, Reports fatigue, Denies fever(s) and Denies weakness ENT: Denies vertigo, Denies dizziness, Denies epistaxis, Denies nasal congestion and Reports sore throat Cardiovascular: Cardiovascular: Denies chest pain Respiratory: Respiratory: Denies chest congestion, Denies cough, Denies dyspnea and Denies wheezing Gastrointestinal: Gastrointestinal: Denies diarrhea, Denies nausea and Denies vomiting Integumentary/Breasts: Skin/Breast: Denies pruritus, Denies erythema and Denies rash PMFSH Past Medical History Medical History No active medical problems Surgical History Surgical History No significant past surgical history Family History Family History Other No active medical problems Social History Social History Smoking status: Never smoker Alcohol intake: current Gender identity (if verbalized by the patient): Female Comments At time of signature, I agree with nursing past medical, surgical, social and family history. There is no relevant family history pertinent to the presenting complaint. Exam Const: General: healthy appearing Nutritional Appearance: well nourished Orientation/consciousness: patient oriented x3 Limitations: no limitations HENMT: Head: normal to inspection Ears: external ears normal, TM's normal bilaterally and EAC's normal Face/Nose/Sinus: Normal external nose present Mouth: Yes Normal oral and palatal mucosa present and Yes moist mucous membranes Throat: uvula midline Other: Moderate erythema and 2+ swelling noted to bilateral tonsils. There is no peritonsillar abscess noted Eyes: Conjunctivae: conjunctivae normal Direct Ophthalmoscopy: no photophobia Neck: Neck: normal visual inspection Resp: Effort & Inspection: normal respiratory effort and not labored Auscultation: clear to auscultation bilaterally, no crackles, no rales and no rhonchi Cardio: Rate: regular rate Rhythm: regular rhythm Heart sounds: no murmurs Skin: General skin exam: normal color Rashes: no rashes Neuro: General: patient oriented x3 Speech: normal speech Psych: Affect: normal affect Attitude: cooperative Course Course Level of Care: Express Care Visit Vital Signs Vital signs: Vital Signs Temperature 36.8 C 11/05/22 09:40 Pulse Rate 86 11/05/22 09:40 Respiratory Rate 18 11/05/22 09:40 Blood Pressure 149/82 H 11/05/22 09:40 Pulse Oximetry 100 11/05/22 09:40 Oxygen Delivery Room Air 11/05/22 09:40 Temperature 36.8 C 11/05/22 09:41 Pulse Rate 86 11/05/22 09:41 Respiratory Rate 18
== END 2022-11-05 10:15 | disposition home or self-care (01) ==
PROVIDERS: Emergency Provider Nurse Practitioner Family
DX: J02.0 Streptococcal pharyngitis (principal)
CPT/HCPCS: 87880; 99213; G0463

== ENCOUNTER 2023-01-02 18:17 | Emergency (ER) | payer OTHER, SELFPAY ==
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
[2023-01-02 18:54] VITALS: BP 157/114; PULSE 107; RESP 18; TEMP 37.2; O2SAT 100
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
[2023-01-02] MEDS: KETOROLAC (*BKC) 60 MG/2 ML VIAL IM (21:17)
[2023-01-02 22:31] VITALS: BP 139/84; PULSE 95; RESP 17; O2SAT 97
== END 2023-01-02 22:32 | disposition home or self-care (01) ==
PROVIDERS: Emergency Provider Physician Assistant
DX: M54.2 Cervicalgia (principal); V49.40XA Driver injured in collision with unspecified motor vehicles in traffic accident, initial encounter; E04.1 Nontoxic single thyroid nodule
CPT/HCPCS: 72125; 81025; 96372; 99284; J1885

== ENCOUNTER 2023-01-25 14:07 | Outpatient (CLI) | payer OTHER, SELFPAY ==
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
== END 2023-01-25 14:08 ==
PROVIDERS: PCP Chiropractor Rehabilitation; Visit Provider Chiropractor Rehabilitation
DX: M47.812 Spondylosis without myelopathy or radiculopathy, cervical region (principal)
CPT/HCPCS: 72052

== ENCOUNTER → 2023-02-01 09:44 | Outpatient (CLI) | payer OTHER, SELFPAY ==
--- NOTE | ~2023-02-01 | XR_ITS ---
Lumbosacral Spine: AP and lateral views Clinical History: Pain Findings: The normal lordotic curve is maintained. The vertebral bodies and posterior elements are i ntact. The intervertebral disc spaces are preserved. The sacroiliac joints are normally outlined. Impression: No significant abnormality. Reviewed, dictated and finalized at [facility]. Impression: No significant abnormality.
--- NOTE | ~2023-02-01 | XR_ITS ---
Thoracic spine: Clinical Indication: Back pain AP and lateral views were performed. No fracture is seen. There is normal alignment of the vertebrae. The intervertebral disc spaces appe ar normal. Paravertebral soft tissues appear normal. Impression: No significant abnormalities noted. Reviewed, dictated and finalized at [facility]. Impression: No significant abnormalities noted.
== END ==
PROVIDERS: PCP Emergency Medicine; Visit Provider Emergency Medicine
DX: M54.50 Low back pain, unspecified (principal)
CPT/HCPCS: 72070; 72100

== ENCOUNTER 2023-02-09 08:54 | Outpatient (CLI) | payer OTHER, SELFPAY ==
--- NOTE | ~2023-02-09 | US_ITS ---
Thyroid ultrasound. Clinical History: Thyroid nodule Findings: Real-time sonography of the thyroid gland was performed. The right lobe measures 4.8 x 1.9 x 1.8 cm. The left lobe measures 4.0 x 1.5 x 1.1 cm. The isthmus is 3 mm in AP diameter. There is a 2.0 x 1.3 x 1.3 cm hypoechoic solid nodule at the posterior aspect of the right midpole. Impression: 2.0 cm TR-4 nodule in the right thyroid lobe, as detailed above. FNA recommended to establish a histo logic diagnosis.. Reviewed, dictated and finalized at location . Impression: 2.0 cm TR-4 nodule in the right thyroid lobe, as detailed above. FNA recommende d to establish a histologic diagnosis..
== END 2023-02-09 08:55 | disposition home or self-care (01) ==
PROVIDERS: PCP Emergency Medicine; Visit Provider Emergency Medicine
DX: E04.1 Nontoxic single thyroid nodule (principal)
CPT/HCPCS: 76536

== ENCOUNTER 2023-04-05 09:14 | Outpatient (CLI) | payer OTHER, SELFPAY ==
--- NOTE | ~2023-04-05 | US_ITS ---
EXAMINATION: US FNA w image guidance DATE: 04/05/2023 09:59 INDICATION: Thyroid nodule TECHNIQUE: A time-out was performed to verify the patient's name, date of , and procedure to be performed . The procedure and its benefits and risks were discussed with the patient. Risks specifically discus sed included bleeding and infection. The patient understood the risks and agreed to proceed. The neck was prepped and draped in the usual sterile manner. 3 mL 1% lidocaine was used for local anesthesia . 6 passes were made with a 25G needle into the lesion. Appropriate needle location was documented with continuous sonographic guidance. A sterile bandage was applied. There were no immediate compli cations. FINDINGS: Grayscale ultrasound images demonstrate biopsy needles advanced into the 2.0 cm hypoechoic TI RADS 4 right thyroid nodule of concern. IMPRESSION: 1. Successful ultrasound-guided fine needle aspiration of the 2.0 cm TI RADS 4 right thyroid nodule of concern. Reviewed, dictated and finalized at location A.
== END 2023-04-05 09:15 | disposition home or self-care (01) ==
PROVIDERS: PCP Emergency Medicine; Visit Provider Emergency Medicine
DX: E04.1 Nontoxic single thyroid nodule (principal)
CPT/HCPCS: 10005; 88173; 88305

== ENCOUNTER 2023-06-25 12:06 | Emergency (ER) | payer OTHER, SELFPAY ==
[2023-06-25 12:40] VITALS: BP 159/119; PULSE 87; RESP 18; TEMP 36.2; O2SAT 100
--- NOTE | 2023-06-25 13:01 | ED.DENTAL ---
HPI - Dental/Oral General Chief complaint: Dental/Oral Stated complaint: toothache Time Seen by Provider: 06/25/23 13:02 Source: patient, RN notes reviewed and old records reviewed Mode of arrival: ambulatory Limitations: no limitations History of Present Illness HPI Narrative: 32-year-old female presents to the [facility] with complaints of left lower dental pain for 2 days. Has been taking Tylenol. States that due to her insurance she is unable to find a dental provider. [facility] the [facility] in the [facility]. Denies any fevers. Has a history of dental infections. No facial erythema or swelling noted. States that the dental school not do anything in the she has been on an antibiotic for a couple days for her dental infections Treatment prior to arrival: other (Tylenol) Related Data Allergies Allergy/AdvReac Type Severity Reaction Status Date / Time No Known Allergies Allergy Verified 06/25/23 16:10 Review of Systems Review of Systems: All systems reviewed & are unremarkable except as noted in HPI and below Constitutional: Constitutional: Reports no additional constitutional complaints Eyes: Eyes: Reports no additional eye complaints ENT: Reports as per HPI Cardiovascular: Cardiovascular: Reports no additional cardiovascular complaints, Denies chest pain and Denies dyspnea Respiratory: Respiratory: Reports no additional respiratory complaints, Denies chest congestion, Denies cough and Denies dyspnea Gastrointestinal: Gastrointestinal: Reports no additional gastrointestinal complaints, Denies abdominal pain, Denies nausea and Denies vomiting Musculoskeletal: Musculoskeletal: Reports no additional musculoskeletal complaints Integumentary/Breasts: Skin/Breast: Reports system reviewed and no additional complaints, except as docu Neurologic: Reports system reviewed and no additional complaints, except as documented Psychiatric: Psychiatric: Reports no additional psychiatric complaints Allergic/Immunologic: Allergic/Immunologic: Reports no additional allergic/immunologic complaints [facility] Past Medical History Medical History No active medical problems Surgical History Surgical History No significant past surgical history Family History Family History Other No active medical problems Social History Social History Smoking status: Never smoker Alcohol intake: current Gender identity (if verbalized by the patient): Female Comments At the time of my signature, I reviewed and agree with the nursing past medical, surgical, social, and family history. There is no relevant family history pertinent to the patient complaint. Exam Const: General: cooperative, healthy appearing, comfortable, no acute distress, well developed, alert and well nourished Nutritional Appearance: well nourished Orientation/consciousness: patient oriented x3 Limitations: no limitations HENMT: Head: normal to inspection Ears: hearing grossly normal bilaterally and external ears normal Face/Nose/Sinus: Normal external nose present, Normal nares present, Normal nasal mucous membranes and turbinates present, normal facial exam and face symmetric Face and sinus: normal facial exam and face symmetric Mouth: Yes Normal oral and palatal mucosa present, Yes lip normal and Yes moist mucous membranes Teeth and gingiva: caries, fair dentition, gingiva abnormal edematous (Left lower mild swelling), tender (Left lower) and receding (Left lower molar) and multiple restorations Throat: posterior oropharynx normal and uvula midline Eyes: General: appearance normal, both eyes and all related structures Alignment and Position: alignment normal Periorbital: periorbital findings normal Pupils: Equal, round and reactive pupils pres
[2023-06-25 13:19] VITALS: BP 150/118
== END 2023-06-25 13:56 | disposition home or self-care (01) ==
PROVIDERS: Emergency Provider Nurse Practitioner
DX: K04.7 Periapical abscess without sinus (principal)
CPT/HCPCS: 99213; G0463

== ENCOUNTER 2023-06-25 14:58 | Emergency (ER) | payer OTHER, SELFPAY ==
[2023-06-25] VITALS (23 sets, daily range): BP systolic 156–176; BP diastolic 89–121; PULSE 73–96; RESP 11–28; TEMP 36.4; O2SAT 91–100
--- NOTE | 2023-06-25 16:15 | ECG_ITS ---
Measurements Intervals Moss Rate: 78 P: 16 MD: 152 QRS: 44 QRSD: 88 T: 42 QT: 387 QTc: 441 Interpretive Statements SINUS RHYTHM NORMAL ECG COMPARED TO ECG 04/27/2021 13:15:00 NO SIGNIFICANT CHANGES Electronically Signed On 06-25-2023 17:52:50 CDT by Fabian Ford D.O.
--- NOTE | 2023-06-25 20:49 | ED.GENADULT ---
HPI - General Adult General Chief complaint: Unspecified Stated complaint: high B/P Time Seen by Provider: 06/25/23 19:08 Source: patient Mode of arrival: ambulatory Limitations: no limitations History of Present Illness HPI narrative: Patient is a 32-year-old female who presents to the ED with report of elevated blood pressure. Patient reports she developed a left lower toothache today. She has had issues with a crown on her left lower molar in the past. She went to an urgent care where she was prescribed penicillin, ibuprofen. Her blood pressure was noted to be elevated at that time into the 150s systolic. It was recommended she follow-up with her primary care doctor. She called her primary care doctor's office and was referred here for further evaluation. Patient states she was told her blood pressure was elevated 2 years ago, but she has never been on any medication for this. She reported feeling somewhat lightheaded earlier today and having an episode of chest tightness this morning. She has not had any further chest pain or tightness since then. She has also had some congestion and allergy symptoms. Denies known sick contacts. Denies fever. Denies any shortness of breath, dizziness, vision changes, nausea, vomiting, weakness, numbness. Related Data Allergies Allergy/AdvReac Type Severity Reaction Status Date / Time No Known Allergies Allergy Verified 06/25/23 16:10 Review of Systems Review of Systems: CONSTITUTIONAL: Denies fever, chills, or sweats. EYES: Denies visual changes. ENT: Denies rhinorrhea, congestion, sore throat. CARDIOVASCULAR: See HPI. RESPIRATORY: Denies cough or dyspnea. GASTROINTESTINAL: Denies abdominal pain, nausea, vomiting, or diarrhea. GENITOURINARY: Denies dysuria or hematuria. NEUROLOGIC: See HPI. All systems reviewed & are unremarkable except as noted in HPI and below PMFSH Past Medical History Medical History No active medical problems Surgical History Surgical History No significant past surgical history Family History Family History Other No active medical problems Social History Social History (Reviewed 09/11/23 @ 21:36 by ADDISON Coombs Smoking status: Never smoker Alcohol intake: current Gender identity (if verbalized by the patient): Female Exam Narrative: GENERAL: Well appearing, well-nourished, non-toxic, in no acute distress. HEAD: Normocephalic, atraumatic. ENT: L lower posterior molar, tooth # 18 with mild tenderness surrounding inner and outer gumline. No focal abscess. No fluctuance. No drainage. No fractured teeth. Otherwise dentition appears to be in good condition. NECK: Supple. No adenopathy, no masses. RESPIRATORY: Airway patent, respirations nonlabored. Clear to auscultation bilaterally, no rales, rhonchi, wheezing. CARDIOVASCULAR: Regular rate and rhythm without murmurs, rubs, or gallops. Peripheral pulses 2+ and equal bilaterally. ABDOMINAL: Soft, nontender, nondistended, no hepatosplenomegaly. Normoactive BS. MUSCULOSKELETAL: Moves all extremities. Strength/ROM intact without gross deformities. SKIN: Warm, dry, normal color. No rashes. NEURO: A&O X3. Speech clear. Cranial nerves II-XII grossly intact. Steady gait. No ataxic movements. PSYCHIATRIC: Appropriate mood and affect. Normal interaction. Course Vital Signs Vital signs: Vital Signs Temperature 97.6 F 06/25/23 16:10 Pulse Rate 85 06/25/23 16:10 Respiratory Rate 18 06/25/23 16:10 Blood Pressure 163/102 H 06/25/23 16:10 Pulse Oximetry 100 06/25/23 16:10 Oxygen Delivery Room Air 06/25/23 16:10 Temperature 97.6 F 06/25/23 16:10 Pulse Rate 78 06/25/23 22:46 Respiratory Rate 11 L 06/25/23 22:46 Blood Pressure 156/102 H 06/25/23 22:46 Pulse Oximet
[2023-06-25] MEDS: amLODIPine BESYLATE 5 MG TABLET PO (21:15)
[2023-06-25 22:05] LABS: Basophils Percent Auto 0.5 % (0.2-1.2); Eosinophils Absolute Auto 0.1 K/mm3 (0-0.3); Hematocrit 40.9 % (37.0-47.0); Hemoglobin 14.2 g/dL (12.0-15.0); Immature Granulocyte Absolute 0.02 K/mm3 (0.00-0.031); Immature Granulocyte Percent A 0.3 % (0-0.5); Lymphocytes Absolute Auto 2.13 K/mm3 (0.9-3.2); Lymphocytes Percent Auto 35.6 % (18.3-44.2); Mean Corpuscular HGB Conc 34.7 g/dl (32-36); Mean Corpuscular Hemoglobin 31.7 pg (26-34); Mean Corpuscular Volume 91.3 fl (80-100); Mean Platelet Volume 10.2 fl (7.4-10.4); Monocytes Absolute Auto 0.5 K/mm3 (0.1-0.6); Monocytes Percent Auto 8.8 % (2.6-8.5); Neutrophils Absolute Auto 3.2 K/mm3 (1.3-6.7); Neutrophils Percent Auto 52.8 % (45.5-73.1); Platelet Count Result 273 k/mm3 (150-375); Red Blood Count 4.48 M/mm3 (4.2-5.4); Red Cell Distribution Width 12.1 % (11.5-14.5)
[2023-06-25 22:18] LABS: Alanine Aminotransferase 28 U/L (6-35); Albumin Level 4.1 g/dL (3.5-5.1); Alkaline Phosphatase 92 U/L (38-126); Anion Gap 5 mmol/L (8-16); Aspartate Amino Transferase 36 U/L (14-36); Bilirubin,Total 0.3 mg/dL (0.2-1.3); Blood Urea Nitrogen 9 mg/dL (7-17); Calcium 8.7 mg/dL (8.4-10.2); Carbon Dioxide 30 mmol/L (22-30); Chloride 101 mmol/L (98-107); Estimated CRCL calculation 117 ml/min; Estimated Glomerular Filt Rate > 60; Glucose 100 mg/dL (65-110); Potassium 3.9 mmol/L (3.4-5.0); Sodium 136 mmol/L (137-145)
[2023-06-25 22:29] LABS: Troponin I < 0.012 ng/mL (0.000-0.034)
== END 2023-06-25 23:26 | disposition home or self-care (01) ==
PROVIDERS: Emergency Provider Physician Assistant; PCP Emergency Medicine
DX: R03.0 Elevated blood-pressure reading, without diagnosis of hypertension (principal); K04.7 Periapical abscess without sinus; R07.89 Other chest pain
CPT/HCPCS: 36415; 80053; 83735; 84484; 85025; 93005; 99284; A9270

== ENCOUNTER 2023-08-29 09:24 | Emergency (ER) | payer OTHER, SELFPAY ==
[2023-08-29 09:45] VITALS: BP 144/103; PULSE 99; RESP 18; TEMP 36.3; O2SAT 99
--- NOTE | 2023-08-29 09:57 | ED.GENADULT ---
HPI - General Adult General Chief complaint: Upper Respiratory Infection Stated complaint: Cough,Female Urogenital Source: patient, family and RN notes reviewed History of Present Illness HPI narrative: 32 yo F presents to urgent care with complaints of cough and congestion as well as dysuria x 2 days. Denies any sore throat, ear pain, N/V/D, abdominal pain, chest pain, SOB, fevers, or chills. Pt does report some lower back pain bilaterally. Pt's son also tested + for strep throat today. Related Data Allergies Allergy/AdvReac Type Severity Reaction Status Date / Time No Known Allergies Allergy Verified 06/25/23 16:10 Review of Systems Review of Systems: Pertinent positives and pertinent negatives per HPI. [facility] [place] Past Medical History Medical History No active medical problems Surgical History Surgical History No significant past surgical history Family History Family History Other No active medical problems Social History Social History Smoking status: Never smoker Alcohol intake: current Gender identity (if verbalized by the patient): Female Comments At the time of my signature, I reviewed and agree with the nursing past medical, surgical, social, and family history. There is no relevant family history pertinent to the patient complaint. Exam Narrative: GENERAL: This is a well-nourished, well-developed patient, in no apparent distress. HEAD: normocephalic, atraumatic. EYES: Sclera clear/white. Vision is grossly intact. EARS: External ears normal, auditory canals clear and without drainage, TMs normal without perforation. Hearing grossly intact. NOSE: External nose normal with no obvious nasal discharge, nares without redness, no rhinorrhea. THROAT: Mucous membranes moist, posterior pharynx clear. NECK: Neck supple, non-tender without lymphadenopathy, masses or thyromegaly. CARDIOVASCULAR: Regular rate and rhythm without murmurs, gallops, or rubs. RESPIRATORY: Clear to auscultation. Breath sounds equal bilaterally. No wheezes, rales, or rhonchi. GASTROINTESTINAL: Abdomen soft, non-tender, nondistended. Bowel sounds are active. No hepato-splenomegaly, or palpable masses. No guarding. SKIN: warm, intact with no suspicious lesions or rash, good texture and turgor. NEURO: awake, alert, and oriented to person, place and time. There were no obvious focal neurologic abnormalities. EXTREMITIES: No clubbing, cyanosis, or edema. No joint tenderness, effusion, or edema noted. BACK: Nontender without deformity or crepitus. No flank tenderness. Course Course Level of Care: Express Care Visit Vital Signs Vital signs: Vital Signs Temperature 97.4 F L 08/29/23 09:45 Pulse Rate 99 08/29/23 09:45 Respiratory Rate 18 08/29/23 09:45 Blood Pressure 144/103 H 08/29/23 09:45 Pulse Oximetry 99 08/29/23 09:45 Oxygen Delivery Room Air 08/29/23 09:45 Temperature 97.4 F L 08/29/23 09:45 Pulse Rate 99 08/29/23 09:45 Respiratory Rate 18 08/29/23 09:45 Blood Pressure 144/103 H 08/29/23 09:45 Pulse Oximetry 99 08/29/23 09:45 Oxygen Delivery Room Air 08/29/23 09:45 reviewed Medical Decision Making MDM Narrative Medical decision making narrative: We will send a urine culture off to the lab; if the culture identifies an organism that the prescribed antibiotic will not treat, you will receive a phone call from an urgent care staff member and an appropriate antibiotic will be prescribed. -Your symptoms should begin to improve within a day of starting antibiotics. But you should finish all the antibiotic pills you get. Otherwise your infection might come back. -Also recommend: drink more fluid. It might help flush out germs, and it does no johnna
== END 2023-08-29 10:32 | disposition home or self-care (01) ==
PROVIDERS: Emergency Provider Nurse Practitioner Family; PCP Emergency Medicine
DX: N39.0 Urinary tract infection, site not specified (principal)
CPT/HCPCS: 81003; 87077; 87086; 87186; 99213; G0463

== ENCOUNTER 2023-10-16 14:41 | Emergency (ER) | payer OTHER, MEDICAID, SELFPAY ==
[2023-10-16 16:03] VITALS: BP 149/100; PULSE 99; RESP 20; TEMP 36.2; O2SAT 100
--- NOTE | 2023-10-16 16:21 | ED.URI ---
HPI - URI/Sore Throat General Chief Complaint: Upper Respiratory Infection Stated Complaint: flu like symptoms Time Seen by Provider: 10/16/23 16:24 Source: patient, RN notes reviewed and old records reviewed Mode of arrival: ambulatory Limitations: no limitations History of Present Illness HPI Narrative: 33-year-old female presents to the [facility] with complaints of ?flu-like symptoms. ? started on Sunday, 3 days. Denies fevers or chills. Has taken TheraFlu Onset (ago): day(s) (3) Related Data Allergies Allergy/AdvReac Type Severity Reaction Status Date / Time No Known Allergies Allergy Verified 10/16/23 16:08 Review of Systems Review of Systems: All systems reviewed & are unremarkable except as noted in HPI and below Constitutional: Constitutional: Reports no additional constitutional complaints Eyes: Eyes: Reports no additional eye complaints ENT: Reports as per HPI and Reports nasal congestion Cardiovascular: Cardiovascular: Reports no additional cardiovascular complaints, Denies chest pain and Denies dyspnea Respiratory: Respiratory: Reports no additional respiratory complaints, Denies chest congestion, Denies cough and Denies dyspnea Gastrointestinal: Gastrointestinal: Reports no additional gastrointestinal complaints, Denies abdominal pain, Denies nausea and Denies vomiting Musculoskeletal: Musculoskeletal: Reports no additional musculoskeletal complaints Integumentary/Breasts: Skin/Breast: Reports system reviewed and no additional complaints, except as docu Neurologic: Reports system reviewed and no additional complaints, except as documented Psychiatric: Psychiatric: Reports no additional psychiatric complaints Allergic/Immunologic: Allergic/Immunologic: Reports no additional allergic/immunologic complaints PMFSH Past Medical History Medical History No active medical problems Surgical History Surgical History No significant past surgical history Family History Family History Other No active medical problems Social History Social History Smoking status: Never smoker Alcohol intake: current Gender identity (if verbalized by the patient): Female Comments At the time of my signature, I reviewed and agree with the nursing past medical, surgical, social, and family history. There is no relevant family history pertinent to the patient complaint. Exam Const: General: cooperative, healthy appearing, comfortable, no acute distress, well developed, alert and well nourished Nutritional Appearance: well nourished Orientation/consciousness: patient oriented x3 Limitations: no limitations HENMT: Head: normal to inspection Ears: hearing grossly normal bilaterally and external ears normal Face/Nose/Sinus: Normal external nose present, Normal nares present, Normal nasal mucous membranes and turbinates present, Nasal discharge present clear bilateral, normal facial exam and face symmetric Face and sinus: normal facial exam and face symmetric Mouth: Yes Normal oral and palatal mucosa present, Yes lip normal and Yes moist mucous membranes Throat: posterior oropharynx normal, uvula midline and postnasal drainage Eyes: General: appearance normal, both eyes and all related structures Alignment and Position: alignment normal Periorbital: periorbital findings normal Pupils: Equal, round and reactive pupils present EOM: EOMs intact bilaterally Neck: Neck: normal visual inspection, full ROM, no lymphadenopathy and no meningeal signs Chest: Chest palpation & inspection: normal inspection of the chest Resp: Effort & Inspection: normal respiratory effort and able to speak in complete sentences Auscultation: clear to auscultation bilaterally, no crackles, no rales, no rhonchi and no wheeze
== END 2023-10-16 16:40 | disposition home or self-care (01) ==
PROVIDERS: Emergency Provider Nurse Practitioner; PCP Emergency Medicine
DX: J32.9 Chronic sinusitis, unspecified (principal); R09.82 Postnasal drip; Z20.822 Contact with and (suspected) exposure to COVID-19
CPT/HCPCS: 87426; 87804; 99213; C9803; G0463

== ENCOUNTER 2024-10-18 16:55 | Emergency (ER) | payer OTHER, SELFPAY ==
--- NOTE | 2024-10-18 17:01 | ED_ITS ---
HPI - URI/Sore Throat General Chief Complaint: Urogenital-Female Stated Complaint: bacterial infection Time Seen by Provider: 10/18/24 17:00 Source: patient Mode of arrival: ambulatory Limitations: no limitations History of Present Illness HPI Narrative: Joan is a 34-year-old female patient presenting to the clinic today with complaints of possible bacterial vaginosis. She reports she took cyctotec on September 28 for . States that she has taken the Cytotec for and developed of bacterial vaginosis infection. Reports that they put her on metronidazole before for this. States that she has had vaginal discharge for the past week that is foul odor, clearish white. She denies any fever, chills, vaginal pain, abdominal pain, or back pain. Not concerned for sexually transmitted infections as she has recently been tested. Related Data Allergies Allergy/AdvReac Type Severity Reaction Status Date / Time No Known Allergies Allergy Verified 10/18/24 17:14 Review of Systems Review of Systems: Pertinent positives per HPI. Patient denies any fever, chills, rash, headache, visual changes, dizziness, cough, shortness of breath, chest pain, palpitations, nausea, vomiting, diarrhea, constipation, abdominal pain, or any urinary issues. PMFSH Past Medical History Medical History No active medical problems Surgical History Surgical History No significant past surgical history Family History Family History Other No active medical problems Social History Social History Smoking status: Never smoker Alcohol intake: current Gender identity (if verbalized by the patient): Female Comments At the time of my signature, I reviewed and agree with the nursing past medical, surgical, social, and family history. There is no relevant family history pertinent to the patient complaint. Exam Narrative: General: Well-developed, well nourished, in no apparent distress. Head: Normocephalic, atraumatic. Cardio: Regular rate and rhythm, s1 and s2 normal, no murmur appreciated. Resp: Clear to auscultation bilaterally, no rhonchi, rales, wheezing or rubs. Abdomen: Soft, pliable, bowel sounds present in all quadrants, non-tender to palpation, no organomegly, no CVAT tenderness. : Deferred Course Course Emergency Course: Portions of this record may have been created with voice recognition software. Level of Care: Express Care Visit Vital Signs Vital signs: Vital signs reviewed MDM - URI/Sore Throat MDM Narrative Medical decision making narrative: At the time of visit patient is resting comfortably on the exam table. Patient appears to be nontoxic. Plan: Patient denies any fevers, purulent vaginal discharge, vaginal pain, back pain, or abdominal pain. I suspect patient likely has bacterial vaginosis due to cyctotec/ treatment. Prescription for metronidazole was sent to the pharmacy. Supportive measures were discussed with the patient and they voiced understanding discharge instructions and agrees to treatment plan. Return precautions reviewed Differential Diagnosis Differential diagnosis: Likely upper respiratory infection, otitis media, sinusitis, viral infection, bronchitis, influenza, pharyngitis and other (COVID) Discharge Plan Discharge Clinical Impression: Vaginal discharge Patient Disposition: Home, Self-Care Condition: Stable Instructions: Antibiotic Form, Bacterial Vaginosis (ED), Vaginal Discharge (ED) Additional Instructions: Take metronidazole as prescribed Avoid oral or sexual intercourse until treatment is completed May take Tylenol/Motrin as needed for pain or fever If your symptoms worsen recommend follow-up with OBGYN/PCP for further evaluation to rule out PID Patient Language: Kittitian Prescriptions: New metronidazole 500 mg tablet 500 mg PO Q12H 7 Days Qty: 14 0RF Follow-up/Referrals: UNKNOWN,DOCTOR [Non-Staff] - Time of Disposition: 17:26 Quality NIHSS Nursing Documentation ED NIHSS nursing documentation: reviewed/agree
[2024-10-18 17:07] VITALS: BP 135/96; PULSE 116; RESP 18; TEMP 36.8; O2SAT 98
== END 2024-10-18 17:30 | disposition home or self-care (01) ==
PROVIDERS: Emergency Provider Nurse Practitioner Family
DX: N89.8 Other specified noninflammatory disorders of vagina (principal)
CPT/HCPCS: 99213; G0463

== ENCOUNTER 2025-01-02 16:29 | Emergency (ER) | payer OTHER, SELFPAY ==
--- NOTE | 2025-01-02 16:32 | ED.URI ---
HPI - URI/Sore Throat General Chief Complaint: Upper Respiratory Infection Stated Complaint: sore throat / RT Ear Pain Time Seen by Provider: 01/02/25 16:35 Source: patient, RN notes reviewed and old records reviewed Mode of arrival: ambulatory Limitations: no limitations History of Present Illness HPI Narrative: 34-year-old female presents to the [facility] with complaints of a sore throat, body aches that started this morning. Right ear pain started to 3 hours ago. No treatment prior to arrival. Patient of reports that her son tested positive for strep. Onset (ago): hour(s) Treatments prior to arrival: none Related Data Allergies Allergy/AdvReac Type Severity Reaction Status Date / Time No Known Allergies Allergy Verified 01/02/25 16:35 Review of Systems Review of Systems: All systems reviewed & are unremarkable except as noted in HPI and below Constitutional: Constitutional: Reports as per HPI and Reports body ache(s) ENT: Reports as per HPI, Reports otalgia and Reports sore throat Cardiovascular: Cardiovascular: Reports no additional cardiovascular complaints, Denies chest pain and Denies dyspnea Respiratory: Respiratory: Reports no additional respiratory complaints, Denies chest congestion, Denies cough and Denies dyspnea Musculoskeletal: Musculoskeletal: Reports no additional musculoskeletal complaints Integumentary/Breasts: Skin/Breast: Reports system reviewed and no additional complaints, except as docu PMFSH Past Medical History Medical History No active medical problems Surgical History Surgical History No significant past surgical history Family History Family History Other No active medical problems Social History Social History Smoking status: Never smoker Alcohol intake: current Gender identity (if verbalized by the patient): Female Comments At the time of my signature, I reviewed and agree with the nursing past medical, surgical, social, and family history. There is no relevant family history pertinent to the patient complaint. Exam Const: General: cooperative, no acute distress, well developed, alert, tired appearing, uncomfortable and well nourished Nutritional Appearance: well nourished Orientation/consciousness: patient oriented x3 Limitations: no limitations HENMT: Head: normal to inspection Ears: hearing grossly normal bilaterally, external ears normal, TM's normal bilaterally, EAC's normal, mastoids normal and no periauricular adenopathy Mouth: Yes Normal oral and palatal mucosa present, Yes lip normal, Yes tongue normal and Yes moist mucous membranes Throat: tonsils normal, uvula midline, postnasal drainage and no uvular edema Eyes: General: appearance normal, both eyes and all related structures Alignment and Position: alignment normal Neck: Neck: normal visual inspection, full ROM, no lymphadenopathy and no meningeal signs Chest: Chest palpation & inspection: normal inspection of the chest Resp: Effort & Inspection: normal respiratory effort and able to speak in complete sentences Auscultation: clear to auscultation bilaterally, no crackles, no rales, no rhonchi and no wheezes Cardio: Rate: regular rate Skin: General skin exam: normal color and no rashes or lesions noted Neuro: General: patient oriented x3, gait normal, moves all extremities and no meningeal signs Cognition (Neuro): normal cognition Speech: normal speech Gait exam (Neuro): Normal gait present Extrem: General: normal to inspection, full ROM, capillary refill normal and normal gait Psych: Appearance: grossly normal and well kempt Mental Status: mental status grossly normal Speech and movement: Normal speech and movement present and Clear speech present Affect: normal affect Attitude: cooperative Course Course Level of Care: Express Care Visit Vital Signs Vital signs: Vital Signs Temperature 98.2 F 01/02/25 16:36 Pulse Rate 90 01/02/25 16:36 Respiratory Rate 17 01/02/25 16:36 Blood Pressure 125/81 01/02/25 16:36 Pulse Oximetry 100 01/02/25 16:36 Oxygen Delivery Room Air 01/02/25 16:36 Temperature 98.2 F 01/02/25 16:36 Pulse Rate 90 01/02/25 16:36 Respiratory Rate 17 01/02/25 16:36 Blood Pressure 125/81 01/02/25 16:36 Pulse Oximetry 100 01/02/25 16:36 Oxygen Delivery Room Air 01/02/25 16:36 Reviewed MDM - URI/Sore Throat MDM Narrative Medical decision making narrative: Patient sitting comfortably in exam. Nontoxic, vitals stable. Patient presents with a couple of hours of sore throat, right ear pain, body aches. Patient strep test positive. Patient appropriate for outpatient treatment with antibiotics and close follow-up Discharge instructions reviewed with patient, as well as provided in writing per nursing staff. The instructions also include specific and strict return/GO TO THE ER as well as f/u information. All questions have been answered, and the patient deny any further questions with discharge and discharge plan. Some parts of this dictation were generated by voice recognition software and may contain typographical and/or grammatical inaccuracies. Differential Diagnosis Differential diagnosis: Likely upper respiratory infection, sinusitis, viral infection, bronchitis and pharyngitis Lab Data Labs: Lab Results 01/02/25 Range/Units 16:44 POC Grp A Strep Screen Positive (Negative) Reviewed Critical Care Time Critical Care Time Critical Care Time: No Discharge Plan Discharge Clinical Impression: Acute streptococcal pharyngitis Patient Disposition: Home, Self-Care Condition: Stable Instructions: Antibiotic Form, Strep Throat (ED) Additional Instructions: After 24-48 hours on antibiotics, Throw the toothbrush away, start using a new one. Please be sure to wash bed linens especially pillow cases. Repeat once you finish the antibiotics. Do not share drinks. Take Motrin alternating with Tylenol for pain and fever alternating every 4 hours. Increase fluids, avoid caffeine. Give plenty of water, juice, Gatorade, Pedialyte, ice pops in Jell-O Follow up with Primary provider if not getting better this week For new or worsening symptoms go directly to the emergency room Patient Language: Tanzanian Prescriptions: New amoxicillin 875 mg tablet 875 mg PO Q12H Qty: 20 0RF Follow-up/Referrals: PHYSICIAN,CONSUMER CREDIT COUNSELOR [Primary Care Provider] - Braulio Orourke MD [Physician] - Stand Alone Forms: Work/School Release IP Time of Disposition: 16:45
--- OUTSIDE RECORDS SUMMARY | 2025-01-02 16:32 | XMS_ITS | Clinical Summary ---
Author Organization [facility] Address [address] [place] [address] Care Team Providers Care Slurry Mixer Name Role Phone Unavailable Primary Care Provider Unavailabl e Source Comments [facility],non-owned Affiliates and Associated Physician Practices is amultiple site organization consisting of ambulatory clinics and hospital sitesin [place], [place], [place] and [place]. This disclosure is being madepursuant to the Care Everywhere program and may not contain all information available regarding this patient. Last updated 18.[facility] [employer] Social History Tobacco Use Types Packs/Day Years Used Date Smoking Tobacco: Unknown Alcohol Use Standard Drinks/Week Comments Yes 0 (1 standard drink = 0.6 oz pur e alcohol) Sex and Gender Information Value Date Recorded Sex Assigned at Not on file Gender Identity Not on file Sexual Orientation Not on file Last Filed Vital Signs Vital Sign Reading Time Taken Comments Blood Pressure 119/61 04/01/2017 2:38 AM CDT Pulse 84 04/01/2017 2:38 AM CDT Temperature 36.8 C (98.2 F) 04/01/2017 2:03 AM CDT Respiratory Rate 16 04/01/2017 2:38 AM CDT Oxygen Saturation 99% 04/01/2017 2:03 AM CDT Inhaled Oxygen Concentration - - Weight 68 kg (150 lb) 04/01/2017 2:03 AM CDT Height 165.1 cm (5' 5 ) 04/01/2017 2:03 AM CDT Body Mass Index 24.96 04/01/2017 2:03 AM CDT Plan of Treatment Health Maintenance Due Date Last Done Comments PAP SMEAR 1990 HIV SCREENING 2005 HEPATITIS C SCREENING 10/05/2008 DTAP/TDAP/TD VACCINES (1 - Tdap) 2009 HEPATITIS B VACCINE (1 of 3 - 19+ 3-dose series) 2009 COVID-19 VACCINE (1 - 2024-2 5 season) 2024 INFLUENZA VACCINE (#1) 2024 DEPRESSION SCREENING 10/15/2024 ZOSTER VACCINE (1 of 2) 2040 HIB VACCINE Aged Out No longer eligi ble based on patient's age to complete this topic HPV VACCINE Aged Out No longer eligi ble based on patient's age to complete this topic MENINGOCOCCAL (Group B) VACC INE SHARED DECISION-MAKING Aged Out No longer eligibl e based on patient's age to complete this topic MENINGOCOCCAL GROUPS A/C/Y/W VACCINE Aged Out No longer eligible b ased on patient's age to complete this topic PNEUMOCOCCAL VACCINE Aged Out No long er eligible based on patient's age to complete this topic
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
--- OUTSIDE RECORDS SUMMARY | 2025-01-02 16:32 | XMS_ITS | Clinical Summary ---
Author Organization [facility] Address [address] [place] [id number] Care Team Providers Care Extractor Operator Solvent Process Name Role Phone Unavailable Primary Care Provider Unavailabl e Social History Tobacco Use Types Packs/Day Years Used Date Smoking Tobacco: Never Assessed Comments Unknown Sex and Gender Information Value Date Recorded Sex Assigned at Not on file Legal Sex Female 8:56 AM FLAMER AFTER LASTING Gender Identity Not on file Sexual Orientation Not on file Plan of Treatment Health Maintenance Due Date Last Done Comments Hepatitis C Virus (HCV) Screening 1990 TdaP Immunization 1990 Hepatitis B Immunization (1 of 3 - 19+ 3-dose series) 2009 Pap Smear 2011 Cervical Cancer Screening (CCS) 2020 HPV/Cotest 2020 Influenza Immunization (#1) 2024 SARS-COV-2 Immunization ( season) 2024 Respiratory Syncytial Virus (RSV) Immunization (Adult) (1 - 1-dose 75+ series) 2065 Meningococcal Immunization (ACWY) Aged Out No longer eligible based on patient's age to complete this topic Pneumococcal Immunization Combined Aged Out No longer eligible based on patient's age to complete this topic Rotavirus Immunization Aged Out No lo nger eligible based on patient's age to complete this topic
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
[2025-01-02 16:36] VITALS: BP 125/81; PULSE 90; RESP 17; TEMP 36.8; O2SAT 100
[2025-01-02 16:46] LABS: EDSTREPNEGPOS1 Positive (Negative)
== END 2025-01-02 16:47 | disposition home or self-care (01) ==
PROVIDERS: Emergency Provider Nurse Practitioner
DX: J02.0 Streptococcal pharyngitis (principal)
CPT/HCPCS: 87880; 99213; G0463